=== PATIENT | male | born 1940 | race Hispanic/Latino ===

== ENCOUNTER 2024-01-15 10:23 | Emergency (ER) | payer OTHER ==
[~2024-01-15] VITALS: Ht 162.6 cm; Wt 58.1 kg
[2024-01-15 10:24] VITALS: BP 153/68; PULSE 50; RESP 16
== END 2024-01-15 11:41 | disposition home or self-care (01) ==
LOC: EDH 10:23
DX: T83.9XXA Unspecified complication of genitourinary prosthetic device, implant and graft, initial encounter (principal); Y82.9 Unspecified medical devices associated with adverse incidents; Y92.89 Other specified places as the place of occurrence of the external cause